=== PATIENT | male | born 1945 | race Caucasian/White ===

== ENCOUNTER → 2017-12-05 | Day surgery (SDC) | payer OTHER ==
[~2017-12-05] MED LIST: ASPIR 8181 MG PO; DIGOXIN125 MCG PO; LASIX 40 MG TAB40 M2 PO; LIPITOR80 MG PO; LISINOPRIL10 MG PO; METFORMIN HCL500 MG PO; NORCO 5-325 TA1 EACH PO; OMEPRAZOLE20 M2 PO; POTASSIUM20 PO; SPIRONOLACTONE25 M1 PO; TOPROL XL25 MG PO; XANAX 0.25 MG0.25 MG PO; XARELTO20 MG PO
[2017-12-05 10:47] LABS: HEMATOCRIT 34.1 % (42.0-52.0); MCH 29.4 pg (26.0-34.0); MCHC 32.2 g/dL (28.0-37.0); MCV 91.4 fL (80.0-100.0); MPV 9.3 fl. (7.2-11.1); RBC 3.73 mil/uL (4.50-6.00); RDW-CV 16.7 % (10.5-14.5); WBC 5.4 thou/uL (4.0-11.0)
[2017-12-05 10:58] LABS: CALCIUM 8.9 mg/dL (8.5-10.1); CREATININE 0.9 mg/dL (0.6-1.3); POTASSIUM 4.6 mmol/L (3.5-5.1)
[2017-12-05 11:02] LABS: ALBUMIN 3.9 g/dL (3.4-5.0); TOTAL BILIRUBIN 1.1 mg/dL (<0.1-1.0); TOTAL PROTEIN 8.7 g/dL (6.4-8.2)
--- NOTE | 2017-12-05 16:52 | EKG ---
[place] [address] ELECTROCARDIOGRAM REPORT Name: TIN HAYES Room: [facility]#: [id number] Admission: 12/05/17 Attend Phys: Adriel Botello DO Discharge: Date of : 49 Report #: [id number] THIS REPORT FOR: //name// [facility] Test Date: 2017-12-05 Test Time: 11:40:51 Pat Name: TIN HAYES Department: Room: Gender: M [employer] Tester: : 1945 Requested By: David Beach Order Number: [id number] Falguni MD: Johann Lucas Measurements Intervals [place] Rate: 61 P: AL: QRS: -76 QRSD: 125 T: 97 QT: 422 QTc: 425 Interpretive Statements Atrial fibrillation RBBB and LAFB Nonspecific T abnormalities, lateral leads No previous ECG available for comparison Electronically Signed On 12-05-2017 16:52:22 CDT by Johann Lucas [email or web address] <ELECTRONICALLY SIGNED> By: Johann Lucas MD, [facility] 12/05/17 1652 1140 1140 Johann Lucas MD, FACC /EPI
--- NOTE | 2017-12-24 10:40 | OP ---
[address] [address] OPERATIVE REPORT Name: TIN HAYES Room: [facility]#: [id number] Admission: 12/05/17 Attend Phys: Adriel Botello DO Discharge: Date of : 49 Report #: [id number] THIS REPORT FOR: //name// CC: Adriel Marquez DATE OF SERVICE: 12/05/2017 REFERRING PHYSICIAN: Nurse practitioner Aggie Marquez and Dr. Dewayne Hines. PREOPERATIVE DIAGNOSIS: Right inguinal hernia. POSTOPERATIVE DIAGNOSIS: Right inguinal hernia. PROCEDURE: Right inguinal hernia repair with 11 x [address] mesh. SURGEON: Adriel Botello DO NUCLEAR MEDICINE PET CT TECHNOLOGIST: Derik Bradshaw DO SECOND GRAIN TRIMMER: Dr. Richelle Allred. ANESTHESIA: General endotracheal. ESTIMATED BLOOD LOSS: Less than 20 mL. COMPLICATIONS: None. DESCRIPTION OF PROCEDURE: After obtaining proper consents and discussing risks and complications with the patient, he was taken to the operating room, laid in the supine position, administered general anesthesia. He was then prepped and draped in the usual fashion. A timeout was performed. We confirmed the appropriate patient and procedure. Preoperative antibiotics had been given. SCDs were in place. The site had been marked in the preoperative holding area. We then made a 5 cm incision midway between the ASIS and pubic tubercle on the right side. This was carried down through the skin into the subcutaneous tissue using electrocautery for hemostasis. Once the fascia of the external oblique was encountered, it was incised along its fibers, grasped and elevated with hemostats and dissected free from the underlying internal oblique muscle and ilioinguinal nerve. The internal oblique muscle was then split assuring no injury to the nerve. The transversalis fascia was then identified. It was bluntly opened using a hemostat. We then brought the spermatic [place] [address] OPERATIVE REPORT Name: TIN HAYES Room: [facility]#: [id number] Admission: 12/05/17 Attend Phys: Adriel Botello DO Discharge: Date of : 49 Report #: [id number] wound and identified an indirect inguinal hernia. The hernia sac was dissected free from the cord all the way back above the internal ring. I then highly ligated the hernia sac using 0 PDS suture. The excess hernia sac was then excised and passed off as specimen. I then developed the preperitoneal space to allow for placement of an 11 x [address] mesh, which was inserted and sutured in place to the transversalis fascia using 0 PDS suture. The internal oblique muscle was then reapproximated also using 0 PDS suture. The external oblique fascia was then closed using a running 0 Vicryl suture. The subcutaneous tissues and fascia were injected with 0.5% Marcaine without epinephrine. Subcutaneous tissues were then closed using 3-0 Vicryl suture. Skin incision was closed using 4-0 Monocryl subcuticular stitches. Mastisol, Steri-Strips, sterile OpSite and pressure dressings were placed. The patient tolerated the procedure well, was awakened in the operating room and transported to recovery room in stable condition. <ELECTRONICALLY SIGNED> By: Adriel Botello DO 12/24/17 1040 1527 1946Akeagan Botello DO /nt
--- NOTE | 2017-12-25 15:08 | PATH ---
[facility] [address] [place] [address] PATHOLOGY RPT PROCEDURE Name: TIN MURRAY [id number] Admission: 12/05/17 Date of : 49 Discharge: Report #: [id number] Path Case #: [id number] [facility] Accession Number: [id number] . 01 Material submitted: . HERNIA SAC . 01 Clinical history: . Right inguinal hernia . 02 Diagnosis: Hernia sac: - Benign mesothelial lined fibromembranous tissue with mild chronic inflammation and fibrosis. (HORACIO:flavia; 12/08/2017) QMS/12/08/2017 . 02 Electronically signed: . Miller Ramos MD, Pathologist NPI- [id number] . 01 Gross description: . The specimen is received in formalin, labeled "Tin Murray, hernia sac". Received is a segment of pale zhou fibromembranous tissue measuring 4.6 x 2.2 x 0.9 cm in greatest dimensions. No distinct nodules or lesions are noted grossly. The specimen is submitted representatively in cassette A1. (CAA; 12/07/2017) QAC/QAC . 02 Pathologist provided ICD-10: K46.9 . 02 CPT . 915632 Specimen Comment: A courtesy copy of this report has been sent to Specimen Comment: [phone], , . Specimen Comment: [id number] Performed at: [address], [place], [place] [id number] MD Gordon Aguirre MD Phone: [phone] Performed at: 02 [facility] [address], [place], [place] [id number] MD Miller Ramos MD Phone: [phone]
== END | disposition home or self-care (01) ==
LOC: M.SUR 06:51
PROVIDERS: Orthopaedic Surgery
DX: K40.90 Unilateral inguinal hernia, without obstruction or gangrene, not specified as recurrent (principal); I11.0 Hypertensive heart disease with heart failure; I50.9 Heart failure, unspecified; I25.2 Old myocardial infarction; E11.9 Type 2 diabetes mellitus without complications; K21.9 Gastro-esophageal reflux disease without esophagitis; Z79.899 Other long term (current) drug therapy; Z95.1 Presence of aortocoronary bypass graft; Z79.82 Long term (current) use of aspirin; Z98.890 Other specified postprocedural states; Z95.810 Presence of automatic (implantable) cardiac defibrillator